=== PATIENT | male | born 1960 ===

== ENCOUNTER 2017-10-17 20:37 | Emergency (ER) | payer SELFPAY ==
[2017-10-17 21:39] LABS: BASO # 0.02 K/mm3 (0.0-2.0); BASO % 0.1 % (0.0-3.0); EOS % 0.1 % (1.5-5.0); GRAN # 14.95 (1.4-6.5); HEMOGLOBIN 14.8 g/dL (14.0-18.0); LYMPH # 1.3 (1.2-3.4); MEAN CORPUSCULAR HEMOGLOBIN 30.2 pg (25.0-35.0); MEAN CORPUSCULAR HGB CONC 33.9 g/dl (31.0-37.0); MEAN PLATELET VOLUME 10.3 fl (7.0-11.0); MONO # 2.2 (0.1-0.6); MONO % 11.8 % (1.0-6.0); RBC 4.9 10^6/uL (3.5-6.1); WHITE BLOOD COUNT 18.5 10^3/ul (4.5-11.0)
--- NOTE | 2017-10-17 21:45 | ED PDOC ---
Arrival/HPI - General Chief Complaint: GI Problem Time Seen by Provider: 10/17/17 20:43 Historian: Patient - History of Present Illness Narrative History of Present Illness (Text): 10/17/17 21:43 A 56 year old male, with no significant past medical history, presents to the emergency department for a complaint of flu like symptoms with diarrhea. The patient states that he has been experiencing these symptoms for 2 weeks, but worsened today. The patient denies headache, dizziness, chest pain, shortness of breath, dyspnea on exertion, abdominal pain, nausea, vomiting, back pain, neck pain, urinary/bowel changes, or any other complaint. PMD: None Time/Duration: Other (2 weeks) Symptom Onset: Sudden Symptom Course: Worsening Activities at Onset: Rest, Light Context: Work Past Medical History - Provider Review Nursing Documentation Reviewed: Yes - Cardiac Hx Cardiac Disorders: No - Pulmonary Hx Respiratory Disorders: No - Neurological Hx Neurological Disorder: No - HEENT Hx HEENT Disorder: No - Renal Hx Renal Disorder: No - Endocrine/Metabolic Hx Endocrine Disorders: No - Hematological/Oncological Hx Blood Disorders: No - Integumentary Hx Dermatological Disorder: No - Musculoskeletal/Rheumatological Hx Musculoskeletal Disorders: No - Gastrointestinal Hx Gastrointestinal Disorders: No - Genitourinary/Gynecological Hx Genitourinary Disorders: No - Psychiatric Hx Psychophysiologic Disorder: No Hx Substance Use: No - Anesthesia Hx Anesthesia: No Family/Social History - Physician Review Nursing Documentation Reviewed: Yes Family/Social History: No Known Family HX Smoking Status: Never Smoked Hx Alcohol Use: No Hx Substance Use: No Allergies/Home Meds Allergies/Adverse Reactions: Allergies No Known Allergies Allergy (Verified 10/17/17 20:53) Home Medications: Home Meds Medication Instructions Recorded Confirmed No Known Home Med 10/17/17 10/17/17 Review of Systems - Physician Review All systems were reviewed & negative as marked: Yes - Review of Systems Respiratory: absent: SOB Cardiovascular: absent: Chest Pain, [place] Gastrointestinal: Diarrhea. absent: Abdominal Pain, Stool Changes, Nausea, Vomiting Musculoskeletal: absent: Back Pain, Neck Pain Physical Exam Vital Signs Reviewed: Yes Vital Signs Temp Pulse Resp BP Pulse Ox 10/18/17 00:37 97.5 F L 76 18 135/73 99 10/18/17 00:00 97.6 F 85 16 130/72 100 10/17/17 22:29 88 18 132/81 99 10/17/17 20:50 97.4 F L 88 18 140/95 H 97 Temperature: Hypothermic Blood Pressure: Hypertensive Pulse: Regular Respiratory Rate: Normal Appearance: Positive for: Well-Appearing, Non-Toxic, Comfortable Pain Distress: None Mental Status: Positive for: Alert and Oriented X 3 - Systems Exam Head: Present: Atraumatic, Normocephalic Pupils: Present: PERRL Extroacular Muscles: Present: EOMI Conjunctiva: Present: Normal Mouth: Present: Moist Mucous Membranes Neck: Present: Normal Range of Motion Respiratory/Chest: Present: Clear to Auscultation, Good Air Exchange. No: Respiratory Distress, Accessory Muscle Use Cardiovascular: Present: Regular Rate and Rhythm, Normal S1, S2. No: Murmurs Abdomen: Present: Normal Bowel Sounds. No: Tenderness, Distention, Peritoneal Signs Back: Present: Normal Inspection Upper Extremity: Present: Normal Inspection. No: Cyanosis, Edema Lower Extremity: Present: Normal Inspection. No: Edema Neurological: Present: GCS=15, CN II-XII Intact, Speech Normal Skin: Present: Warm, Dry, Normal Color. No: Rashes Psychiatric: Present: Alert, Oriented x 3, Normal Insight, Normal Concentration Medical Decision Making ED Course and Treatment: 10/17/17 21:47 Impression: A 56 year old male, presents to the emergency department complaining of flu- like symptoms with associated diarrhea. Plan: -- Chest X-ray -- Labs -- Reassess and disposition Progress Notes: pt feels better will dc - Lab Interpretations Lab Results: 10/17/17 21:30 10/17/17 21:30 Lab Results 10/17/17 21:30: Influenza Typ A,B (EIA) Negative for flu a/b 10/17/17 21:30: Sodium 141, Potassium 3.8, Chloride 104, Carbon Dioxide 23, Anion Gap 18, BUN 14, Creatinine 1.3, Est GFR ( Amer) > 60, Est GFR (Non- Af Amer) 57, Random Glucose 203 H, Calcium 9.8, Total Bilirubin 0.8, AST 38, ALT 46, Alkaline Phosphatase 87, Total Protein 8.0, Albumin 4.7, Globulin 3.2, Albumin/Globulin Ratio 1.5 10/17/17 21:30: WBC 18.5 H, RBC 4.90, Hgb 14.8, Hct 43.6, MCV 89.0, MCH 30.2, MCHC 33.9, RDW 13.0, Plt Count 225, MPV 10.3, Gran % 81.0 H, Lymph % (Auto) 7.0 L, [place] % (Auto) 11.8 H, Eos % (Auto) 0.1 L, Baso % (Auto) 0.1, Gran # 14.95 H, Lymph # (Auto) 1.3, [place] # (Auto) 2.2 H, Eos # (Auto) 0.0, Baso # (Auto) 0.02 I have reviewed the lab results: Yes - Scribe Statement The provider has reviewed the documentation as recorded by the Almaibgregorio Ennis Provider Almaibe Attestation: All medical record entries made by the Scribe were at my direction and personally dictated by me. I have reviewed the chart and agree that the record accurately reflects my personal performance of the history, physical exam, medical decision making, and the department course for this patient. I have also personally directed, reviewed, and agree with the discharge instructions and disposition. Disposition/Present on Arrival - Present on Arrival Any Indicators Present on Arrival: No History of DVT/PE: No History of Uncontrolled Diabetes: No Urinary Catheter: No History of Decub. Ulcer: No History Surgical Site Infection Following: None - Disposition Have Diagnosis and Disposition been Completed?: Yes Diagnosis: Diarrhea, Non-insulin dependent type 2 diabetes mellitus Disposition: HOME/ ROUTINE Disposition Time: 00:37 Condition: GOOD Discharge Instructions (ExitCare): Diarrhea in Adolescents and Adults, Type 2 Diabetes Referrals: Chaparro Luque MD [Staff Provider] - Follow up with primary Forms: [employer] ([place]), WORK NOTE
[2017-10-17 21:53] LABS: ALB/GLOB RATIO 1.5 (1.1-1.8); ALBUMIN 4.7 g/dL (3.0-4.8); ALT/SGPT 46 U/L (7-56); AST/SGOT 38 U/L (17-59); BLOOD UREA NITROGEN 14 mg/dL (7-21); CALCIUM 9.8 mg/dL (8.4-10.5); GFR AFRICAN-AMERICAN > 60; GFR NON-AFRICAN AMERICAN 57
[2017-10-18 00:39] VITALS: BP 135/73; PULSE 76; RESP 18; TEMP 97.5; O2SAT 99
== END 2017-10-18 00:37 | disposition home or self-care (01) ==
LOC: ED 20:37
DX: R19.7 Diarrhea, unspecified (principal); E11.9 Type 2 diabetes mellitus without complications